=== PATIENT | male | born 1990 | race Caucasian/White ===

== ENCOUNTER 2017-07-18 20:02 | Emergency (ER) | payer MEDICAID ==
[~2017-07-18] VITALS: Ht 188 cm; Wt 103.8 kg
[2017-07-18] MEDS ORDERED: BACTRIM DS1 TAB PO (20:40)
[2017-07-18] MEDS ORDERED: BENADRYL 50MG C50 MG PO (20:40)
[2017-07-18] MEDS ORDERED: LAMISIL AT ATHLET1 % TOP (20:40)
[2017-07-18 20:53] VITALS: BP 131/84
== END 2017-07-18 20:53 | disposition home or self-care (01) | DRG 607 ==
LOC: ED 20:02
DX: L23.9 Allergic contact dermatitis, unspecified cause (principal); J45.909 Unspecified asthma, uncomplicated